=== PATIENT | female | born 1985 | race Caucasian/White ===

== ENCOUNTER 2017-02-10 18:20 | Emergency (ER) | payer OTHER ==
[~2017-02-10] VITALS: Ht 165.1 cm; Wt 117.0 kg
[~2017-02-10 18:20] MED LIST: IBUP-2213 PO; LEVO0.0236 PO
[2017-02-10 18:44] VITALS: BP 117/72
[2017-02-10] MEDS ORDERED: IRON65TA11 PO (18:46)
--- NOTE | 2017-02-10 21:42 | NUR ---
PT TAKEN TO OF2
--- NOTE | 2017-02-10 21:49 | NUR ---
Dr. Rogers evaluating patient at bedside.
[2017-02-10 22:25] VITALS: BP 121/67
--- NOTE | 2017-02-10 22:25 | NUR ---
Patient discharged with v/s stable. Written and verbal after care instructions given and explained. Patient alert, oriented and verbalized understanding of instructions. Ambulatory with steady gait. All questions addressed prior to discharge. ID band removed. Patient advised to follow up with PMD. Rx of PHENERGAN DM AND A Z-OPAL given. Patient educated on indication of medication including possible reaction and side effects. Opportunity to ask questions provided and answered.
== END 2017-02-10 22:25 | disposition home or self-care (01) ==
LOC: MED 18:20
DX: J02.9 Acute pharyngitis, unspecified (principal); E03.9 Hypothyroidism, unspecified; Z88.5 Allergy status to narcotic agent
CPT/HCPCS: 99283

== ENCOUNTER 2017-03-19 14:05 | Emergency (ER) | payer OTHER ==
[~2017-03-19] VITALS: Ht 165.1 cm; Wt 117.0 kg
[~2017-03-19 14:05] MED LIST changes: +IRON65TA11 PO
[2017-03-19 14:09] VITALS: BP 139/86
--- NOTE | 2017-03-19 14:34 | NUR ---
Patient BIBA to bed 4 at this time.
--- NOTE | 2017-03-19 14:35 | NUR ---
31/F BIBA C/O SOB x 30 MINUTES AGO. PT DENIES PAIN AT THIS TIME. HX:HYPERTHYROIDISM. DENIES N/V/D; SKIN IS PINK/WARM/DRY; AAOX4 WITH EVEN AND STEADY GAIT; LUNGS CLEAR BL; HR EVEN AND REGULAR; PT DENIES ANY FEVER, CP, SOB, OR COUGH AT THIS TIME; PATIENT STATES PAIN OF 0/10 AT THIS TIME; VSS; PATIENT POSITIONED FOR COMFORT; HOB ELEVATED; BEDRAILS UP X2; BED DOWN. ER MD MADE AWARE OF PT STATUS.
[2017-03-19] MEDS: KETOROLAC 60 MG/2 ML VIAL IM ONE (15:20)
[2017-03-19] MEDS: IBUPROFEN 600 MG TAB PO ONE (16:02)
[2017-03-19] MEDS: ALUMINUM HYD/MAG/SIMETHICONE 30 ML, DICYCLOMINE HCL LIQUID 20 MG, LIDOCAINE VISCOUS 2% ... PO ONE ×3 (16:48)
[2017-03-19 17:16] VITALS: BP 119/71
--- NOTE | 2017-03-19 17:16 | NUR ---
Patient discharged with v/s stable. Written and verbal after care instructions given and explained. Patient alert, oriented and verbalized understanding of instructions. Ambulatory with steady gait. All questions addressed prior to discharge. ID band removed. Patient advised to follow up with PMD. Rx of PROTONIX & ZOFRAN given. Patient educated on indication of medication including possible reaction and side effects. Opportunity to ask questions provided and answered.
== END 2017-03-19 17:16 | disposition home or self-care (01) ==
LOC: MED 14:05
DX: R07.89 Other chest pain (principal); R06.00 Dyspnea, unspecified; R20.0 Anesthesia of skin; F41.9 Anxiety disorder, unspecified; E03.9 Hypothyroidism, unspecified; Z88.6 Allergy status to analgesic agent; Z90.49 Acquired absence of other specified parts of digestive tract
CPT/HCPCS: 36415; 71020; 85379; 93005; 99291; J1885

== ENCOUNTER 2017-03-31 19:00 | Emergency (ER) | payer OTHER ==
[~2017-03-31] VITALS: Ht 170.2 cm; Wt 113.4 kg
[2017-03-31 19:31] VITALS: BP 125/78
--- NOTE | 2017-03-31 20:34 | NUR ---
PT TAKEN TO BED 4
--- NOTE | 2017-03-31 20:35 | NUR ---
PT CAME TO ER WITH C/O RT ARM NUMBNESS AND SOB STARTED AT 1500 HOURS.
--- NOTE | 2017-03-31 20:36 | NUR ---
Dr. Arroyo evaluating patient at bedside.
[2017-03-31 21:00] VITALS: BP 121/75
--- NOTE | 2017-03-31 21:00 | NUR ---
Patient discharged with v/s stable. Written and verbal after care instructions given and explained. Patient alert, oriented and verbalized understanding of instructions. Ambulatory with steady gait. All questions addressed prior to discharge. ID band removed. Patient advised to follow up with PMD. Rx of OMEPRAZOLE 40MG DELAYED RELEASE CAPSULE given. Patient educated on indication of medication including possible reaction and side effects. Opportunity to ask questions provided and answered.
== END 2017-03-31 21:00 | disposition home or self-care (01) ==
LOC: MED 19:00
DX: K21.9 Gastro-esophageal reflux disease without esophagitis (principal); R03.0 Elevated blood-pressure reading, without diagnosis of hypertension; E05.90 Thyrotoxicosis, unspecified without thyrotoxic crisis or storm; F41.9 Anxiety disorder, unspecified; R42 Dizziness and giddiness; R20.0 Anesthesia of skin; Z88.6 Allergy status to analgesic agent
CPT/HCPCS: 82948; 99283

== ENCOUNTER 2017-08-09 00:56 | Emergency (ER) | payer OTHER ==
[~2017-08-09] VITALS: Ht 165.1 cm; Wt 122.5 kg
[~2017-08-09 00:56] MED LIST changes: -IBUP-2213 PO; -IRON65TA11 PO; -LEVO0.0236 PO; +LEVOTHYROXIN0.025 M1 PO; +MOTRIN600 MG PO; +NATURAL IRON65 MG PO; +PCN
[2017-08-09 01:12] VITALS: BP 97/59
[2017-08-09] MEDS ORDERED: LEVOTHYROXIN0.075 M2 PO (01:18)
--- NOTE | 2017-08-09 01:20 | NUR ---
PT BIB [facility] C/O PRESSURE PAIN TO BACK OF HEAD, TIGLING TO BILATERAL ARMS, AND COUGH X 1 1/2 WK. MED HX HYPOTHYROIDISM, AND ANXIETY. PT DENIES ANY TRAUMA. PT DENIES N/V/D; SKIN IS INTACT, PINK/WARM/DRY; AAOX4, PERRL, WITH EVEN AND STEADY GAIT; LUNGS CLEAR BL, BREATHING UNLABORED; HR EVEN AND REGULAR, BL PERIPHERAL PULSES PRESENT; BS ACTIVE X4, NO TENDERNESS TO PALPATION. PT DENIES ANY FEVER, CP, SOB AT THIS TIME; PT STATES 5/10 PAIN AT THIS TIME; VSS; PATIENT POSITIONED FOR COMFORT; HOB ELEVATED; BEDRAILS UP X2; BED DOWN.
--- NOTE | 2017-08-09 01:21 | NUR ---
[facility]
[2017-08-09] MEDS ORDERED: NACL 0.9% 1,000 ML IV ONE (01:35)
[2017-08-09] MEDS ORDERED: KETOROLAC 30 MG/ML VIAL IVP ONE (03:45)
--- NOTE | 2017-08-09 03:55 | NUR ---
Patient appears to be resting comfortably in bed. Vital Signs within normal limits. Respirations even and unlabored.
[2017-08-09 04:27] VITALS: BP 107/55
--- NOTE | 2017-08-09 04:27 | NUR ---
Patient discharged with v/s stable. Written and verbal after care instructions given and explained. Patient alert, oriented and verbalized understanding of instructions. Ambulatory with steady gait. All questions addressed prior to discharge. ID band removed. Patient advised to follow up with PMD. Rx of PREVACID given. Patient educated on indication of medication including possible reaction and side effects. Opportunity to ask questions provided and answered.
== END 2017-08-09 04:28 | disposition home or self-care (01) ==
LOC: MED 00:56
DX: F41.9 Anxiety disorder, unspecified (principal); E05.90 Thyrotoxicosis, unspecified without thyrotoxic crisis or storm; Z88.5 Allergy status to narcotic agent
CPT/HCPCS: 36415; 74000; 80053; 84443; 85025; 93005; J1885; J7030

== ENCOUNTER 2017-11-08 23:06 | Emergency (ER) | payer OTHER ==
[~2017-11-08] VITALS: Ht 167.6 cm; Wt 122.5 kg
[~2017-11-08 23:06] MED LIST changes: +FERR-252 PO; +LEVO0.0711 PO; -LEVOTHYROXIN0.025 M1 PO; -MOTRIN600 MG PO; -NATURAL IRON65 MG PO; -PCN
[2017-11-08 23:08] VITALS: BP 116/67
--- NOTE | 2017-11-08 23:13 | NUR ---
TO LOBBY, JOSE MIN. EKG DONE, A/W BED, ERMD NOTED
--- NOTE | 2017-11-09 01:23 | NUR ---
DR. ESPINOSA AT BEDSIDE EVALUATING PT.
--- NOTE | 2017-11-09 01:26 | NUR ---
PATIENT PRESENTS TO ED WITH c/o chest pain . PT STATES pain sunday night . DENIES N/V/D; SKIN IS PINK/WARM/DRY; AAOX4 WITH EVEN AND STEADY GAIT; LUNGS CLEAR BL; HR EVEN AND REGULAR; PT DENIES ANY FEVER, OR COUGH AT THIS TIME; PATIENT STATES PAIN OF 7/10 AT THIS TIME; VSS; PATIENT POSITIONED FOR COMFORT; HOB ELEVATED; BEDRAILS UP X2; BED DOWN. ER MD MADE AWARE OF PT STATUS.
--- NOTE | 2017-11-09 02:00 | NUR ---
PT TAKEN TO XRAY VIA WHEEL CHAIR
[2017-11-09 02:25] VITALS: BP 133/87
--- NOTE | 2017-11-09 02:26 | NUR ---
Patient discharged with v/s stable. Written and verbal after care instructions given and explained. Patient verbalized understanding. Ambulatory with steady gait. All questions addressed prior to discharge. Advised to follow up with PMD.
== END 2017-11-09 02:26 | disposition home or self-care (01) ==
LOC: MED 23:06
DX: S19.9XXA Unspecified injury of neck, initial encounter (principal); E66.01 Morbid (severe) obesity due to excess calories; R03.0 Elevated blood-pressure reading, without diagnosis of hypertension; E03.9 Hypothyroidism, unspecified; Z79.899 Other long term (current) drug therapy; Z88.5 Allergy status to narcotic agent; X58.XXXA Exposure to other specified factors, initial encounter; Y93.89 Activity, other specified; Y92.89 Other specified places as the place of occurrence of the external cause; Y99.8 Other external cause status
CPT/HCPCS: 70360; 99284

== ENCOUNTER 2017-11-18 18:45 | Emergency (ER) | payer OTHER ==
[~2017-11-18] VITALS: Ht 167.6 cm; Wt 123.4 kg
[2017-11-18 19:00] VITALS: BP 118/64
--- NOTE | 2017-11-18 19:56 | NUR ---
PT TAKEN TO BED 10
--- NOTE | 2017-11-18 20:00 | NUR ---
PATIENT IS A 32 Y/O FEMALE WHO PRESENTS TO THE ED C/O NECK PAIN. PT STATES, "MY NECK HAS BEEN HURTING FOR ABOUT A DAY." PT REPORTS 8/10 PRESSURE PAIN ON THE RIGHT NECK THAT DOES NOT RADIATE. PT DENIES CP, SOB, REPORTS DIARRHEA. PT AAOX4, RR EVEN/UNLABORED. PT REPOSITIONED FOR COMFORT, BED IN LOWEST POSITION. ER FURNACE ATTENDANT FATOU NOTIFIED. WILL CONTINUE TO MONITOR.
[2017-11-18] MEDS ORDERED: KETOROLAC 30 MG/ML VIAL IM ONE (20:35)
[2017-11-18 21:45] VITALS: BP 121/70
[2017-11-30] MEDS ORDERED: VITAMIN D2 (17:09)
[2017-11-30] MEDS ORDERED: PREDNISONE 5 MG (17:09)
[2017-11-30] MEDS ORDERED: LEVOTHYROXINE (17:09)
[2017-11-30] MEDS ORDERED: HYDROCODONE-ACETAMIN 10-325 MG (17:09)
[2017-11-30] MEDS ORDERED: METHOTREXATE 2.5 MG TABLET (17:09)
[2017-11-30] MEDS ORDERED: FOLIC ACID 1 MG TABLET (17:09)
== END 2017-11-18 21:45 | disposition home or self-care (01) ==
LOC: MED 18:45
DX: S16.1XXA Strain of muscle, fascia and tendon at neck level, initial encounter (principal); K92.2 Gastrointestinal hemorrhage, unspecified; K81.9 Cholecystitis, unspecified; X58.XXXA Exposure to other specified factors, initial encounter; Y93.89 Activity, other specified; Y92.89 Other specified places as the place of occurrence of the external cause; Y99.8 Other external cause status
CPT/HCPCS: 81025; 96372; 99283; J1885

== ENCOUNTER 2017-12-12 12:33 | Emergency (ER) | payer OTHER ==
[~2017-12-12] VITALS: Ht 167.6 cm; Wt 118.4 kg
[~2017-12-12 12:33] MED LIST changes: +FOLIC ACID 1 MG TABLET; +HYDROCODONE-ACETAMIN 10-325 MG; +LEVOTHYROXINE; +METHOTREXATE 2.5 MG TABLET; +PREDNISONE 5 MG; +VITAMIN D2
[2017-12-12 13:06] VITALS: BP 115/76
--- NOTE | 2017-12-12 13:10 | NUR ---
PT TAKEN TO BED 10
--- NOTE | 2017-12-12 13:19 | NUR ---
C/O DIARRHEA X 3+WKS, ANXIETY, SHAKING, NIGHT SWEATS, CHEST PRESSURE, INTERMITTENT EPIGASTRIC PAIN 03/14 HX; HTN RX; METOPROLOL, ATIVAN
--- NOTE | 2017-12-12 13:21 | NUR ---
PT CRYING WHEN SIMPLE QUESTIONS ASKED, PT VERY ANXIOUS, REPORTS STRESS AT HOME WITH CHILDREN. DENIES SI/HI,VH,AH. PT REQUESTING FOR FOOD AND WATER. INFORMED NONE AT THIS TIME.
--- NOTE | 2017-12-12 13:31 | NUR ---
Patient being evaluated by physician at bedside.
[2017-12-12] MEDS ORDERED: DIPHENOXYLATE /ATROPINE 2.5 MG TAB PO ONE (13:35)
[2017-12-12] MEDS ORDERED: LORazepam 1 MG TAB PO ONE (13:35)
--- NOTE | 2017-12-12 13:56 | NUR ---
NO DIARRHEA WHILE HERE IN THE ER. PT TALKING WITH FRIEND AT BEDSIDE, IN NAD.
[2017-12-12 14:17] VITALS: BP 122/83
--- NOTE | 2017-12-12 14:17 | NUR ---
Patient discharged with v/s stable. Written and verbal after care instructions given and explained. Patient alert, oriented and verbalized understanding of instructions. Ambulatory with steady gait. All questions addressed prior to discharge. ID band removed. Patient advised to follow up with PMD. Rx of LOMOTIL,ATIVAN given. Patient educated on indication of medication including possible reaction and side effects. Opportunity to ask questions provided and answered.
== END 2017-12-12 14:17 | disposition home or self-care (01) ==
LOC: MED 12:33
DX: R19.7 Diarrhea, unspecified (principal); F41.9 Anxiety disorder, unspecified; E07.9 Disorder of thyroid, unspecified; Z79.899 Other long term (current) drug therapy; Z88.5 Allergy status to narcotic agent
CPT/HCPCS: 81002; 81025; 99283

== ENCOUNTER 2018-02-27 15:43 | Emergency (ER) | payer OTHER ==
[~2018-02-27] VITALS: Ht 165.1 cm; Wt 122.5 kg
[2018-02-27 15:45] VITALS: BP 140/88
--- NOTE | 2018-02-27 16:01 | NUR ---
32Y/F BIB SELF FOR COMPLAINS OF EPIGASTRIC PAIN WITH RIGHT SIDED HEADACHE AND RIGHT ARM PAIN. PATIENT HAS HX OF HYPOTHYROIDISM AND RHEUMATIC ARTHRITIS. PATIENT PRESENTS TO ED WITH .DENIES N/V/D; AAOX4 WITH EVEN AND STEADY GAIT; LUNGS CLEAR BL; HR EVEN AND REGULAR; PT DENIES ANY FEVER, SOB, OR COUGH AT THIS TIME; PATIENT STATES PAIN OF 9/10 AT THIS TIME; PATIENT POSITIONED FOR COMFORT; HOB ELEVATED; BEDRAILS UP X1; BED DOWN. ER MADE AWARE OF PT STATUS. Addendum: 02/27/18 at 1610 by [facility] 32Y/F BIB SELF FOR COMPLAINS OF EPIGASTRIC PAIN WITH RIGHT SIDED HEADACHE AND RIGHT ARM PAIN. PATIENT HAS HX OF HYPOTHYROIDISM AND RHEUMATIC ARTHRITIS.DENIES N/V/D; AAOX4 WITH EVEN AND STEADY GAIT; LUNGS CLEAR BL; HR EVEN AND REGULAR; PT DENIES ANY FEVER, SOB, OR COUGH AT THIS TIME; PATIENT STATES PAIN OF 9/10 AT THIS TIME; PATIENT POSITIONED FOR COMFORT; HOB ELEVATED; BEDRAILS UP X1; BED DOWN. ER MADE AWARE OF PT STATUS.
--- NOTE | 2018-02-27 16:34 | NUR ---
Patient being evaluated by DR PEREZ at bedside.
[2018-02-27 17:10] LABS: BASOPHILS % (AUTO) 0.2 % (0.0-2.0); EOSINOPHILS % (AUTO) 0.3 % (0.0-4.0); HEMATOCRIT 40.9 % (36-48); HEMOGLOBIN 13.3 g/dL (12.0-16.0); LYMPHOCYTES # (AUTO) 1.7 K/uL (2.5-16.5); LYMPHOCYTES % (AUTO) 13.6 % (20.5-51.1); MEAN CORPUSCULAR HEMOGLOBIN 27 pg (27-31); MEAN CORPUSCULAR HGB CONC 33 g/dL (33-37); MEAN CORPUSCULAR VOLUME 83.8 fL (80-94); MONOCYTES # (AUTO) 0.6 K/uL (0.8-1.0); MONOCYTES % (AUTO) 4.9 % (1.7-9.3); NEUTROPHILS # (AUTO) 10.4 K/uL (1.8-7.7); PLATELET COUNT (AUTO) 301 K/uL (140-450); RED BLOOD CELL COUNT(AUTO) 4.88 MIL/uL (4.20-5.40); RED CELL DISTRIBUTION WIDTH 13.7 % (11.6-13.7); WHITE BLOOD COUNT (AUTO) 12.8 K/uL (4.8-10.8)
[2018-02-27 17:18] LABS: ANION GAP 8.2 (8-16); CARBON DIOXIDE 29.5 mmol/L (21-32); CREATININE 0.6 mg/dL (0.6-1.3); POTASSIUM 3.7 mmol/L (3.5-5.1)
[2018-02-27 17:24] LABS: ALBUMIN 3.5 g/dL (3.4-5.0); TOTAL BILIRUBIN 0.4 mg/dL (0.0-1.0)
[2018-02-27 18:17] VITALS: BP 126/76
--- NOTE | 2018-02-27 18:17 | NUR ---
Patient discharged with v/s stable. Written and verbal after care instructions given and explained. Patient alert, oriented and verbalized understanding of instructions. Ambulatory with steady gait. All questions addressed prior to discharge. ID band removed. Patient advised to follow up with PMD. Rx of MYLANTA AND DEBROX given. Patient educated on indication of medication including possible reaction and side effects. Opportunity to ask questions provided and answered.
== END 2018-02-27 18:17 | disposition home or self-care (01) ==
LOC: MED 15:43
DX: R10.13 Epigastric pain (principal); E03.9 Hypothyroidism, unspecified; Z88.6 Allergy status to analgesic agent
CPT/HCPCS: 36415; 80053; 81002; 81025; 83690; 84484; 85025; 93005; 99285

== ENCOUNTER 2018-03-05 21:21 | Emergency (ER) | payer OTHER ==
[~2018-03-05] VITALS: Ht 167.6 cm; Wt 120.7 kg
[2018-03-05 21:29] VITALS: BP 109/72
--- NOTE | 2018-03-05 21:37 | NUR ---
PT TAKEN TO CHAIR D
[2018-03-05 21:40] VITALS: BP 109/72
[2018-03-05] MEDS ORDERED: SYN.1 PO (21:40)
--- NOTE | 2018-03-05 21:40 | NUR ---
PATIENT IS A 32 Y/O FEMALE WHO PRESENTS TO THE ED C/O HEADACHE. PT STATES THAT IT HAS BEEN GOING ON FOR 2 DAYS. PT REPORTS 8/10 ACHING BILATERAL XIAO PAIN THAT DOES NOT RADIATE. PT DENIES CP, SOB, N/V/D. PT AAOX4, RR EVEN/UNLABORED. PT REPOSITIONED FOR COMFORT, BED IN LOWEST POSITION. ER MD DR. STEVENS NOTIFIED. WILL CONTINUE TO MONITOR.
--- NOTE | 2018-03-05 22:13 | NUR ---
Dr. Dave evaluating patient.
--- NOTE | 2018-03-05 22:54 | NUR ---
PT TAKEN TO CT
--- NOTE | 2018-03-05 23:03 | NUR ---
PATIENT RETURN FROM CT.
--- NOTE | 2018-03-05 23:59 | NUR ---
Patient discharged with v/s stable. Written and verbal after care instructions given and explained. Patient alert, oriented and verbalized understanding of instructions. Ambulatory with steady gait. All questions addressed prior to discharge. ID band removed. Patient advised to follow up with PMD. Rx of MEDROL AND FIORINAL given. Patient educated on indication of medication including possible reaction and side effects. Opportunity to ask questions provided and answered.
== END 2018-03-05 23:59 | disposition home or self-care (01) ==
LOC: MED 21:21
DX: G44.209 Tension-type headache, unspecified, not intractable (principal); M06.9 Rheumatoid arthritis, unspecified; F41.9 Anxiety disorder, unspecified; Z88.5 Allergy status to narcotic agent; Z79.899 Other long term (current) drug therapy
CPT/HCPCS: 70486; 81025; 99284

== ENCOUNTER 2018-06-09 22:24 | Emergency (ER) | payer OTHER ==
[~2018-06-09] VITALS: Ht 167.6 cm; Wt 125.2 kg
[2018-06-09 22:24] VITALS: BP 115/69
[~2018-06-09 22:24] MED LIST changes: -FERR-252 PO; -FOLIC ACID 1 MG TABLET; -HYDROCODONE-ACETAMIN 10-325 MG; -LEVO0.0711 PO; -LEVOTHYROXINE; -METHOTREXATE 2.5 MG TABLET; -PREDNISONE 5 MG; +SYN.1 PO; -VITAMIN D2
[2018-06-09] MEDS ORDERED: LEVO0.173 PO (22:31)
--- NOTE | 2018-06-09 22:49 | NUR ---
Patient ambulated to bed 9. RN evaluating patient at bedside.
--- NOTE | 2018-06-09 23:00 | NUR ---
PT BIB SELF C/O CHEST PAIN X3 DAYS AND SOB . PT STATES PAIN IS LIKE A "SHOCK" ACROSS CHEST. NO PROVOKING OR PRECIPITATING FACTORS TO CP. PT IS LAYING IN BED, APPEARS TO BE IN NO ACUTE DISTRESS. RR EVEN AND UNLABORED, BL BS CLEAR THROUGHOUT. PMH HYPOTHYROID
--- NOTE | 2018-06-09 23:15 | NUR ---
DR GIL AT BEDSIDE EVALUATING PT.
[2018-06-09] MEDS ORDERED: KETOROLAC 30 MG/ML VIAL IM ONE (23:55)
[2018-06-09] MEDS ORDERED: LORazepam 1 MG TAB PO ONE (23:55)
--- NOTE | 2018-06-10 00:01 | NUR ---
PENDING DISCHARGE PAPERWORK
--- NOTE | 2018-06-10 00:08 | NUR ---
PT STATES I ALREADY TOOK ATIVAN, I DON'T WANT ANY PAIN MEDICINE. ALL BENEFIT EXPLAINS, VERBALIZED UNDERSTANDING. MADE AWARE. WILL CONTINUE TO MONITOR.
[2018-06-10 00:18] VITALS: BP 113/64
== END 2018-06-10 00:17 | disposition home or self-care (01) ==
LOC: MED 22:24
DX: F41.9 Anxiety disorder, unspecified (principal); R07.89 Other chest pain; E03.9 Hypothyroidism, unspecified; Z88.8 Allergy status to other drugs, medicaments and biological substances; Z79.899 Other long term (current) drug therapy
CPT/HCPCS: 81002; 81025; 93005; 99284; J1885

== ENCOUNTER 2018-09-29 19:45 | Inpatient (IN) | payer OTHER ==
[~2018-09-29] VITALS: Ht 167.6 cm; Wt 117.9 kg
[2018-09-29 19:45] VITALS: BP 119/73
[~2018-09-29 19:45] MED LIST changes: +LEVO0.173 PO; -SYN.1 PO
--- NOTE | 2018-09-29 19:48 | NUR ---
TO LOBBY A/W BED, JOSE MILLER NOTED.
--- NOTE | 2018-09-29 20:53 | NUR ---
PT PRESENTS TO ED WITH BILAT ABD PAIN X1 DAY. PT STATSE SHARP STABBING DEEP SEVERE ACHE IN BILAT FLANKS. VSS. A&OX4. ABD SOFT AND NONTANEDER. BOWEL SOUNDS PRESENT X4 QUADRANTS. ER MD AWARE. POSITIONED IN BED FOR COMFORT. SIDE RAIL UP. CONTINUE TO MONITOR.
--- NOTE | 2018-09-29 20:53 | NUR ---
TO ER BED 3 FROM ER LOBBY
[2018-09-29] MEDS ORDERED: NACL 0.9% 1,000 ML IV ONE (21:00)
[2018-09-29] MEDS ORDERED: LEVOFLOXACIN 500 MG/D5W PREMIX 100 ML IV ONE (21:00)
[2018-09-29] MEDS ORDERED: KETOROLAC 30 MG/ML VIAL IVP ONE (21:00)
[2018-09-29 21:55] LABS: BASOPHILS % (AUTO) 0.1 % (0.0-2.0); EOSINOPHILS % (AUTO) 0.1 % (0.0-4.0); HEMATOCRIT 40.8 % (36-48); HEMOGLOBIN 13.1 g/dL (12.0-16.0); LYMPHOCYTES # (AUTO) 1.3 K/uL (2.5-16.5); LYMPHOCYTES % (AUTO) 6.7 % (20.5-51.1); MEAN CORPUSCULAR HEMOGLOBIN 26 pg (27-31); MEAN CORPUSCULAR HGB CONC 32 g/dL (33-37); MONOCYTES # (AUTO) 0.6 K/uL (0.8-1.0); MONOCYTES % (AUTO) 3.2 % (1.7-9.3); NEUTROPHILS # (AUTO) 16.7 K/uL (1.8-7.7); NEUTROPHILS % (AUTO) 89.9 % (42.2-75.2); PLATELET COUNT (AUTO) 326 K/uL (140-450); RED BLOOD CELL COUNT(AUTO) 5.03 MIL/uL (4.20-5.40); WHITE BLOOD COUNT (AUTO) 18.6 K/uL (4.8-10.8)
[2018-09-29 22:15] LABS: ALBUMIN 3.6 g/dL (3.4-5.0); ANION GAP 11.5 (8-16); CARBON DIOXIDE 28.3 mmol/L (21-32); CREATININE 0.7 mg/dL (0.6-1.3); POTASSIUM 3.8 mmol/L (3.5-5.1); TOTAL BILIRUBIN 0.3 mg/dL (0.0-1.0)
[2018-09-29] MEDS ORDERED: fentaNYL 0.05 MG/ML VIAL IVP ONE (22:50)
[2018-09-29 23:16] LABS: APPEARANCE,URINE CLOUDY (CLEAR); BLOOD, URINE LARGE (NEGATIVE); COLOR,URINE YELLOW (YELLOW); LEUKOCYTE ESTERASE ,URINE TRACE (NEGATIVE); NITRITE, URINE NEGATIVE (NEGATIVE); UGLUCOSE NEGATIVE (NEGATIVE)
[2018-09-29 23:49] LABS: BILIRUBIN,URINE NEGATIVE (NEGATIVE); RBC,URINE TOO NUMEROUS TO COUN /HPF (0-5)
--- NOTE | 2018-09-30 00:10 | NUR ---
PT ARRIVED ON UNIT VIA GURNEY WITH ER NURSE. PT ABLE TO AMBULATE FROM RSEFFNER INTO BED. PT IN STABLE CONDITION. PT IS AAOX4. PT IS ON RA WITH RESPIRATIONS EVEN AND UNLABORED. IV ACCESS IN L AC 20G, SALINE LOCKED. IV IS PATENT AND INTACT. SKIN IS INTACT. PT HAS NO C/O PAIN AT THIS TIME. MRSA SWAB COLLECTED. ORIENTED PT TO ROOM AND USE OF CALL LIGHT. BED IS LOCKED, LOW POSITION WITH SIDE RAILS UP X2. CALL LIGHT IS WITHIN REACH. BOARD UPDATED. WILL CONTINUE TO MONITOR PT.
[2018-09-30 00:20] VITALS: BP 124/71
[2018-09-30] MEDS ORDERED: ALPRAZolam 0.5 MG TAB PO PRN (00:35)
[2018-09-30] MEDS ORDERED: IBUPROFEN 800 MG TAB PO PRN (00:35)
--- NOTE | 2018-09-30 00:40 | NUR ---
COLLECTED PT HOME MEDS. SEALED IN BAG, LABELED AND SENT TO PHARMACY.
[2018-09-30] MEDS ORDERED: ONDANSETRON 4 MG/2 ML VIAL IVP PRN (00:45)
[2018-09-30] MEDS: NACL 0.45% 1,000 ML IV SCH ×2 (00:59→09:43)
--- NOTE | 2018-09-30 00:59 | NUR ---
ORDERED IVF STARTED.
--- NOTE | 2018-09-30 03:52 | NUR ---
PT IS ASLEEP IN BED. NO SIGNS OR SYMPTOMS OF DISTRESS. WILL CONTINUE TO MONITOR.
[2018-09-30] MEDS ORDERED: metroNIDAZOLE 500 MG/NS PREMIX 100 ML IV SCH (05:00)
[2018-09-30] MEDS ORDERED: LEVOTHYROXINE 0.1 MG, LEVOTHYROXINE 0.025 MG PO SCH ×2 (06:30)
--- NOTE | 2018-09-30 07:27 | NUR ---
PT C/O PAIN MOTRIN GIVEN. ENDORSED PT TO DAY SHIFT NURSE, CAROLE, FOR CONTINUITY OF CARE. PT IN STABLE CONDITION.
[2018-09-30 08:00] VITALS: BP 114/68
--- NOTE | 2018-09-30 08:00 | NUR ---
Patient is awake and alert, oriented x 4. She has some abd pain, does not require pain medication. Clear liquid diet this morning. Mario Mulligan RN
[2018-09-30] MEDS ORDERED: LEVOTHYROXINE 0.025 MG TAB PO SCH (09:00)
[2018-09-30] MEDS ORDERED: CHOLECALCIFEROL 1,000 IU TAB PO SCH (09:00)
[2018-09-30] MEDS ORDERED: sulfaSALAzine 500 MG TAB PO SCH (09:00)
[2018-09-30] MEDS ORDERED: FAMOTIDINE 20 MG/2 ML VIAL IV SCH (09:00)
--- NOTE | 2018-09-30 09:19 | NUR ---
PATIENT HAS BEEN SCREENED AND CATEGORIZED HIGH NUTRITION RISK. PATIENT WILL BE SEEN WITHIN 1-2 DAYS OF ADMISSION. 09/29/18-10/01/[address]
[2018-09-30] MEDS ORDERED: LEVO500T2 PO (10:42)
--- NOTE | 2018-09-30 11:04 | NUR ---
CM NOTE PER PATIENT'S FACESHEET, PCP IS DR. REESE BATISTA. PER JANE OF [facility] PH# [phone], PATIENT HAS ALREADY SET UP HER OWN OUTPATIENT APPOINTMENT FOR OCTOBER 06 2018 11:00 [place] [address] [address] [facility] [id number] PATIENT REQUESTED TO MAKE AN OUTPATIENT APPOINTMENT WITH ONE OF HER OTHER DOCTORS, DR. UMU BURKETT PH# [phone] [facility] PH# [phone], PATIENT IS SET UP FOR OUTPATIENT FF UP APPOINTMENT ON OCTOBER 04 2018 9:45 AM AT [place] [address] [facility] [id number] TERESA YOUNG AWARE
--- NOTE | 2018-09-30 13:10 | NUR ---
Patient discharged to home, received discharge instructions regarding follow up care, diet, activity, meds at home to be resumed, and rx information given. Patient gives verbal acknowledgement of understanding information received. Mario Mulligan RN
[2018-09-30] MEDS ORDERED: LEVOFLOXACIN 250 MG/D5 PREMIX 50 ML IV SCH (21:00)
== END 2018-09-30 12:30 | disposition home or self-care (01) | DRG 690 ==
LOC: MED 19:45 → MTU 23:22
PROVIDERS: ADMIT Internal Medicine; ATTEND Internal Medicine
DX: N39.0 Urinary tract infection, site not specified (principal); E03.9 Hypothyroidism, unspecified; F41.9 Anxiety disorder, unspecified; M06.9 Rheumatoid arthritis, unspecified; Z88.5 Allergy status to narcotic agent; Z79.899 Other long term (current) drug therapy; Z90.49 Acquired absence of other specified parts of digestive tract
CPT/HCPCS: 36415; 80053; 81001; 85025; 87040; 87081; 87086; 96365; 96375; 99285; J1885; J1956; J3010; J3490

== ENCOUNTER 2019-03-28 22:15 | Emergency (ER) | payer OTHER, MEDICAID ==
[~2019-03-28] VITALS: Ht 167.6 cm; Wt 127.0 kg
[~2019-03-28 22:15] MED LIST changes: +LEVO500T2 PO
[2019-03-28 22:24] VITALS: BP 134/77
--- NOTE | 2019-03-28 22:37 | NUR ---
PT OKAY TO WAIT IN LOBBY PER ER .
--- NOTE | 2019-03-28 22:37 | NUR ---
EKG WAS DONE ON PT, PT AMBULATED BACK TO JOSE HERMAN
--- NOTE | 2019-03-28 23:54 | NUR ---
PT AMBULATED TO ER BED 7
[2019-03-29 00:02] VITALS: BP 134/77
--- NOTE | 2019-03-29 00:06 | NUR ---
PT TO ED WITH C/O CP X 3 DAYS. NO SOB. PT DENIES ANY CARDIAC HX. NO EDEMA NOTED. S1 S2 HEART SOUNDS PRESENTS AND WNL. RHYTHM IS REGULAR. PT PLACED INTO BED, PENDING MD LAUREN.
== END 2019-03-29 00:15 | disposition left against medical advice (07) ==
LOC: MED 22:15
DX: R07.9 Chest pain, unspecified (principal); Z53.21 Procedure and treatment not carried out due to patient leaving prior to being seen by health care provider
CPT/HCPCS: 93005; 99281; 99283

== ENCOUNTER 2019-05-14 15:05 | Emergency (ER) | payer OTHER, MEDICAID ==
[~2019-05-14] VITALS: Ht 170.2 cm; Wt 126.1 kg
[2019-05-14 15:11] VITALS: BP 140/90
--- NOTE | 2019-05-14 15:16 | NUR ---
PT AMB TO LOBBY. AA0X4. VSS AT THIS TIME.
--- NOTE | 2019-05-14 15:31 | NUR ---
PT AMBULATED TO BE 03.
--- NOTE | 2019-05-14 16:08 | NUR ---
PT BIB SELF WITH C/O HEADACHE X 3 DAYS. DECRIBED PRESSURE AND PAIN 5/10. TINGLING ON R SIDE OF HEAD. TOOK IBUPROFEN FOR HEADACHE AT 1230, SOME RELIEF. ARTHRITIS, HYPOTHYROIDISM RX LEVOTHYROXINE 150 MG
[2019-05-14] MEDS ORDERED: ACETAMINOPHEN 325 MG TAB PO ONE ×2 (16:15→16:35)
--- NOTE | 2019-05-14 16:30 | NUR ---
PATIENT TAKEN FOR CT SCAN CT VIA [facility] AT THIS TIME.
--- NOTE | 2019-05-14 16:35 | NUR ---
PT LEFT FOR CT .
[2019-05-14] MEDS ORDERED: ACETAMINOPHEN 325 MG TAB ONE (16:36)
[2019-05-14 16:37] LABS: APPEARANCE,URINE CLEAR (CLEAR); BILIRUBIN,URINE NEGATIVE (NEGATIVE); BLOOD, URINE NEGATIVE (NEGATIVE); COLOR,URINE YELLOW (YELLOW); LEUKOCYTE ESTERASE ,URINE NEGATIVE (NEGATIVE); NITRITE, URINE NEGATIVE (NEGATIVE); UGLUCOSE NEGATIVE (NEGATIVE)
[2019-05-14 16:38] LABS: BASOPHILS % (AUTO) 0.4 % (0.0-2.0); EOSINOPHILS # (AUTO) 0.1 K/uL (0-0.4); EOSINOPHILS % (AUTO) 1.2 % (0.0-4.0); HEMATOCRIT 39.4 % (36-48); HEMOGLOBIN 12.6 g/dL (12.0-16.0); LYMPHOCYTES # (AUTO) 2.4 K/uL (2.5-16.5); LYMPHOCYTES % (AUTO) 19.6 % (20.5-51.1); MEAN CORPUSCULAR HEMOGLOBIN 26 pg (27-31); MEAN CORPUSCULAR HGB CONC 32 g/dL (33-37); MEAN CORPUSCULAR VOLUME 81.3 fL (80-94); MONOCYTES # (AUTO) 0.6 K/uL (0.8-1.0); MONOCYTES % (AUTO) 5.2 % (1.7-9.3); NEUTROPHILS # (AUTO) 9.1 K/uL (1.8-7.7); NEUTROPHILS % (AUTO) 73.6 % (42.2-75.2); PLATELET COUNT (AUTO) 300 K/uL (140-450); RED BLOOD CELL COUNT(AUTO) 4.85 MIL/uL (4.20-5.40); RED CELL DISTRIBUTION WIDTH 14.3 % (11.6-13.7); WHITE BLOOD COUNT (AUTO) 12.4 K/uL (4.8-10.8)
[2019-05-14 16:43] LABS: BARBITURATE, URINE NEG. ng/ml (NEG <=200); BENZODIAZEPINE, URINE NEG. ng/mL (NEG <=200); CANNABINOID, URINE NEG. ng/mL (NEG <=50); COCAINE, URINE NEG. ng/mL (NEG <=300); OPIATE, URINE NEG. ng/mL (NEG <=2000); PHENCYCLIDINE SCREEN,URINE NEG. ng/mL (NEG <=25)
[2019-05-14 17:13] LABS: ALBUMIN 3.4 g/dL (3.4-5.0); TOTAL BILIRUBIN 0.4 mg/dL (0.0-1.0)
[2019-05-14 17:14] LABS: ANION GAP 10.8 (8-16); CARBON DIOXIDE 29.2 mmol/L (21-32); CREATININE 0.6 mg/dL (0.6-1.3)
[2019-05-14 17:55] VITALS: BP 114/67
--- NOTE | 2019-05-14 17:55 | NUR ---
Patient discharged with v/s stable. Written and verbal after care instructions given and explained. Patient alert, oriented and verbalized understanding of instructions. Ambulatory with steady gait. All questions addressed prior to discharge. ID band removed. Patient advised to follow up with PMD. Rx of IBUPROFEN, MECLIZINE HCL given. Patient educated on indication of medication including possible reaction and side effects. Opportunity to ask questions provided and answered.
== END 2019-05-14 17:55 | disposition home or self-care (01) ==
LOC: MED 15:05
DX: R51 Headache (principal); R42 Dizziness and giddiness; E03.9 Hypothyroidism, unspecified; Z88.5 Allergy status to narcotic agent; Z79.899 Other long term (current) drug therapy
CPT/HCPCS: 36415; 70450; 71045; 80053; 80305; 81003; 81025; 85025; 93005; 99284; Q0092

== ENCOUNTER 2019-06-20 19:54 | Emergency (ER) | payer OTHER ==
[~2019-06-20] VITALS: Ht 167.6 cm; Wt 126.1 kg
[2019-06-20 20:00] VITALS: BP 131/77
[2019-06-20] MEDS ORDERED: IBUPROFEN 800 MG TAB PO ONE (21:15)
[2019-06-20 21:29] VITALS: BP 118/73
== END 2019-06-20 21:28 | disposition home or self-care (01) ==
LOC: MED 19:54
DX: S83.92XA Sprain of unspecified site of left knee, initial encounter (principal); E07.9 Disorder of thyroid, unspecified; Z88.5 Allergy status to narcotic agent; Z79.899 Other long term (current) drug therapy; Z79.2 Long term (current) use of antibiotics; W01.0XXA Fall on same level from slipping, tripping and stumbling without subsequent striking against object, initial encounter; Y93.89 Activity, other specified; Y92.89 Other specified places as the place of occurrence of the external cause; Y99.8 Other external cause status
CPT/HCPCS: 73562; 99283; Q0092

== ENCOUNTER 2019-08-17 21:46 | Emergency (ER) | payer OTHER, MEDICAID ==
[~2019-08-17] VITALS: Ht 170.2 cm; Wt 126.1 kg
[2019-08-17 21:50] VITALS: BP 134/75
--- NOTE | 2019-08-17 22:10 | NUR ---
PT AMBULATED TO ER BED 11
--- NOTE | 2019-08-17 22:29 | NUR ---
C/O THROAT PAIN/DISCOMFORT RADIATING DOWN TO CHEST AREA. PT STATES IS HAS BEEN AN ONGOING PROBLEM AND THAT SHE WAS SUPPOSED TO HAVE A SCOPE PLACED DOWN HER THROAT BUT NEVER FOLLOWED UP. ALSO REPORTS THAT SHE FEELS THAT SOMETHING IS STUCK IN HER THROAT. PAIN 08/14. PT AA0X4. VSS. BED IS DOWN, LOCKED, BED RAIL X 1, ERMD TO SEE PT. HX HYPOTHYROID, RA RX LEVOTHYROXINE, ARTHRITIS
--- NOTE | 2019-08-17 22:42 | NUR ---
VSS AT THIS TIME. PT AA0X4
[2019-08-17] MEDS ORDERED: ALUMINUM HYD/MAG/SIMETHICONE 30 ML, DICYCLOMINE HCL LIQUID 20 MG, LIDOCAINE VISCOUS 2% ... PO ONE ×3 (23:35)
--- NOTE | 2019-08-18 01:03 | NUR ---
VSS AT THIS TIME. PT AA0X4
[2019-08-18 02:05] VITALS: BP 105/61
== END 2019-08-18 02:05 | disposition home or self-care (01) ==
LOC: MED 21:46
DX: K22.4 Dyskinesia of esophagus (principal); R07.9 Chest pain, unspecified; R10.9 Unspecified abdominal pain; F41.9 Anxiety disorder, unspecified; E07.9 Disorder of thyroid, unspecified; Z79.899 Other long term (current) drug therapy; Z88.5 Allergy status to narcotic agent
CPT/HCPCS: 70360; 71045; 93005; 99283

== ENCOUNTER 2019-08-21 18:58 | Emergency (ER) | payer OTHER ==
[~2019-08-21] VITALS: Ht 167.6 cm; Wt 122.6 kg
[2019-08-21 19:05] VITALS: BP 131/81
--- NOTE | 2019-08-21 19:10 | NUR ---
34/F PRESENTED TO ED WITH C/O REPORTS DIFFICULTY SWALLOWING X SUNDAY. PT DENIES THROAT PAIN, BUT REPORTS THAT SHE FEELS FOOD GETTING STUCK IN THROAT WHEN SHE SWALLOWS. AIRWAY IS PATENT, VOICE CLEAR, NO EXCESS SALIVA, RR EVEN AND NON LABORED, LUNG SOUNDS CLEAR. PT ALSO REPORTS EPIGASTRIC PRESSURE PAIN AT 8/10X TODAY. PT SEEN HERE SUNDAY FOR SAME SYMPTOMS. PT STATES SHE DIDN'T TAKE HER MYLANTA TODAY. STATES SHE HAS BEEN TRYING THE KETO DIET BUT STOPPED WHEN SHE STARTED FEELING SICK. STATES THIS HAS BEEN AN ONGOING PROBLEM FOR A "WHILE" NOW. NORMOACTIVE BOWEL SOUNDS HEARD IN ALL 4 QUADRANTS. STATES SHE FEELS BLOATED INTERMITENTLY. DENIES N/V/D. VSS. MEDHX:HYPOTHYROIDISM, RA RX:LEVOTHYROXINE
--- NOTE | 2019-08-21 19:48 | NUR ---
PT EVALUATED BY ANGELA
[2019-08-21] MEDS ORDERED: DICYCLOMINE HCL LIQUID 20 MG, ALUMINUM HYD/MAG/SIMETHICONE 30 ML, LIDOCAINE VISCOUS 2% ... PO ONE ×3 (19:50)
[2019-08-21] MEDS ORDERED: ONDANSETRON 4 MG ODT PO ONE (19:50)
[2019-08-21 20:12] LABS: BASOPHILS # (AUTO) 0.1 K/uL (0.00-0.22); BASOPHILS % (AUTO) 0.4 % (0.0-2.0); EOSINOPHILS # (AUTO) 0.2 K/uL (0-0.4); EOSINOPHILS % (AUTO) 1.1 % (0.0-4.0); HEMATOCRIT 41.2 % (36-48); HEMOGLOBIN 13.1 g/dL (12.0-16.0); LYMPHOCYTES # (AUTO) 2.4 K/uL (2.5-16.5); LYMPHOCYTES % (AUTO) 17.5 % (20.5-51.1); MEAN CORPUSCULAR HEMOGLOBIN 26 pg (27-31); MEAN CORPUSCULAR HGB CONC 32 g/dL (33-37); MEAN CORPUSCULAR VOLUME 81.6 fL (80-94); MONOCYTES # (AUTO) 0.7 K/uL (0.8-1.0); MONOCYTES % (AUTO) 5.3 % (1.7-9.3); NEUTROPHILS # (AUTO) 10.3 K/uL (1.8-7.7); NEUTROPHILS % (AUTO) 75.7 % (42.2-75.2); PLATELET COUNT (AUTO) 340 K/uL (140-450); RED BLOOD CELL COUNT(AUTO) 5.05 MIL/uL (4.20-5.40); RED CELL DISTRIBUTION WIDTH 15.5 % (11.6-13.7); WHITE BLOOD COUNT (AUTO) 13.7 K/uL (4.8-10.8)
[2019-08-21 20:30] LABS: APPEARANCE,URINE CLEAR (CLEAR); BILIRUBIN,URINE NEGATIVE (NEGATIVE); BLOOD, URINE 1+ (NEGATIVE); COLOR,URINE AMBER (YELLOW); LEUKOCYTE ESTERASE ,URINE NEGATIVE (NEGATIVE); NITRITE, URINE NEGATIVE (NEGATIVE); UGLUCOSE NEGATIVE (NEGATIVE)
[2019-08-21 20:49] LABS: ALBUMIN 3.8 g/dL (3.4-5.0); ANION GAP 12.6 (8-16); CARBON DIOXIDE 28.3 mmol/L (21-32); CREATININE 0.6 mg/dL (0.6-1.3); POTASSIUM 3.9 mmol/L (3.5-5.1); TOTAL BILIRUBIN 0.2 mg/dL (0.0-1.0)
[2019-08-21 21:13] LABS: RBC,URINE 0-5 /HPF (0-5); WBC,URINE NONE SEEN /HPF (0-5)
[2019-08-21 21:59] VITALS: BP 96/69
--- NOTE | 2019-08-21 21:59 | NUR ---
Patient discharged with v/s stable. Written and verbal after care instructions given and explained. Patient alert, oriented and verbalized understanding of instructions. Ambulatory with steady gait. All questions addressed prior to discharge. ID band removed. Patient advised to follow up with PMD. Rx of SUCRALFATE, PROTONIX, ZOFRAN given. Patient educated on indication of medication including possible reaction and side effects. Opportunity to ask questions provided and answered.
== END 2019-08-21 21:59 | disposition home or self-care (01) ==
LOC: MED 18:58
DX: R13.10 Dysphagia, unspecified (principal); R10.9 Unspecified abdominal pain; R06.02 Shortness of breath; E03.9 Hypothyroidism, unspecified; Z88.5 Allergy status to narcotic agent; Z79.899 Other long term (current) drug therapy
CPT/HCPCS: 36415; 80053; 81001; 81025; 83690; 84703; 85025; 99283; Q0162

== ENCOUNTER 2019-10-14 21:23 | Emergency (ER) | payer OTHER ==
[~2019-10-14] VITALS: Ht 167.6 cm; Wt 122.5 kg
[2019-10-14 21:25] VITALS: BP 139/80
--- NOTE | 2019-10-14 21:28 | NUR ---
TO LOBBY A/W BED AMBULATORY
--- NOTE | 2019-10-14 21:49 | NUR ---
PT AMBULATED TO BED 08
--- NOTE | 2019-10-14 22:00 | NUR ---
34 Y/O FEMALE PRESENTS TO ED, C/O CHEST PAIN 06/14. PT STATES PAIN STARTED LAST NIGHT, DOES NOT RADIATE. PT DENIES ANY HEADACHE OR DIZZINESS. DENIES N/V/D. NO SOB/DIFFICULTY BREATHING NOTED. PT TOOK MOTRIN WITH LITTLE RELIEF. PLACED ON MONITOR. PT AT STABLE CONDITION. ERMD AWARE. WILL CONTINUE TO MONITOR.
[2019-10-14] MEDS ORDERED: DICYCLOMINE HCL LIQUID 20 MG, ALUMINUM HYD/MAG/SIMETHICONE 30 ML, LIDOCAINE VISCOUS 2% ... PO ONE ×3 (22:15)
[2019-10-14] MEDS ORDERED: ACETAMINOPHEN EXTRA STRENGTH 500 MG TAB PO ONE (22:50)
[2019-10-14 23:00] VITALS: BP 133/85
--- NOTE | 2019-10-14 23:00 | NUR ---
PT DISCHARGED WITH PAPERWORK. RX PRILOSEC, TYLENOL. EDUCATED PT REGARDING MEDICATIONS AND S/E. EDUCATED PT REGARDING D/C DIAGNOSIS AND INSTRUCTIONS. PT VERBALIZED UNDERSTANDING OF TEACHING. TOLD PT TO FOLLOW UP WITH PCP AND WHEN TO RETURN TO ED. PT AT STABLE CONDITION. ALL QUESTIONS ANSWERED.
== END 2019-10-14 23:00 | disposition home or self-care (01) ==
LOC: MED 21:23
DX: K29.70 Gastritis, unspecified, without bleeding (principal); E03.9 Hypothyroidism, unspecified; Z79.899 Other long term (current) drug therapy; Z88.5 Allergy status to narcotic agent
CPT/HCPCS: 93005; 99283

== ENCOUNTER 2020-01-09 13:19 | Emergency (ER) | payer OTHER ==
[~2020-01-09] VITALS: Ht 167.6 cm; Wt 119.7 kg
[2020-01-09 13:25] VITALS: BP 118/74
--- NOTE | 2020-01-09 13:29 | NUR ---
PT AMBULATED TO LOBBY
--- NOTE | 2020-01-09 14:18 | NUR ---
34 /F BIB FAMILY C/O COUGH WITH MID CHEST PAIN 8/10,PRESSURE X 5 DAYS. PT IN NO DISTRESS. 99% RA. HX THYROID DISEASE, ARTHRITIS. PATIENT STATES PAIN OF 8/10 AT THIS TIME. PATIENT POSITIONED FOR COMFORT; HOB ELEVATED; BEDRAILS UP X1; BED DOWN. ER MD MADE AWARE OF PT STATUS.
--- NOTE | 2020-01-09 15:29 | NUR ---
Patient discharged with v/s stable. Written and verbal after care instructions given and explained. Patient alert, oriented and verbalized understanding of instructions. Ambulatory with steady gait. All questions addressed prior to discharge. ID band removed. Patient advised to follow up with PMD. Rx of MOTRIN & PREDNISONE given. Patient educated on indication of medication including possible reaction and side effects. Opportunity to ask questions provided and answered.
[2020-01-09 15:31] VITALS: BP 118/74
== END 2020-01-09 15:29 | disposition home or self-care (01) ==
LOC: MED 13:19
DX: R07.89 Other chest pain (principal); R05 Cough; E03.9 Hypothyroidism, unspecified; Z98.890 Other specified postprocedural states; Z79.899 Other long term (current) drug therapy; Z88.5 Allergy status to narcotic agent
CPT/HCPCS: 71045; 99283

== ENCOUNTER 2020-04-08 10:34 | Emergency (ER) | payer OTHER, SELFPAY ==
[~2020-04-08] VITALS: Ht 167.6 cm; Wt 113.4 kg
[2020-04-08 10:43] VITALS: BP 120/75
--- NOTE | 2020-04-08 11:03 | NUR ---
C/O HEADACHE XLAST NIGHT, COUGH X TODAY.MED HX: HYPOTHYROID. PATIENT STATES PAIN OF 5/10 AT THIS TIME.
--- NOTE | 2020-04-08 11:20 | NUR ---
COVID SWAB DONE.
[2020-04-08] MEDS ORDERED: ACETAMINOPHEN EXTRA STRENGTH 500 MG TAB ONE (11:23)
[2020-04-08] MEDS ORDERED: ACETAMINOPHEN EXTRA STRENGTH 500 MG TAB PO ONE (11:25)
[2020-04-08 11:40] VITALS: BP 120/75
--- NOTE | 2020-04-08 11:40 | NUR ---
Patient discharged with v/s stable. Written and verbal after care instructions given and explained. Patient alert, oriented and verbalized understanding of instructions. Ambulatory with steady gait. All questions addressed prior to discharge. Patient advised to self isolate for the next two weeks. Pt advised she would be called with her COVID results. ID band removed. Patient advised to follow up with PMD. Rx of Ibuprofen 600mg given. Patient educated on indication of medication including possible reaction and side effects. Opportunity to ask questions provided and answered.
--- NOTE | 2020-04-09 22:22 | NUR ---
RECEIVED A POSITIVE COVID SWAB FROM JACKI ENGLE. REPORT GIVEN TO INFECTION CONTROL.
== END 2020-04-08 11:40 | disposition home or self-care (01) ==
LOC: MED 10:34
DX: M79.10 Myalgia, unspecified site (principal); Z20.828 Contact with and (suspected) exposure to other viral communicable diseases; E07.9 Disorder of thyroid, unspecified; Z79.899 Other long term (current) drug therapy; Z88.5 Allergy status to narcotic agent
CPT/HCPCS: 99283; C9803; U0003; 36415

== ENCOUNTER 2020-04-14 11:43 | Emergency (ER) | payer OTHER, SELFPAY ==
[~2020-04-14] VITALS: Ht 167.6 cm; Wt 113.4 kg
[2020-04-14 11:44] VITALS: BP 116/68
--- NOTE | 2020-04-14 11:44 | NUR ---
AMBULATED TO BED 1
--- NOTE | 2020-04-14 11:44 | NUR ---
Patient placed in bed 1 with COVID precautions in place.
--- NOTE | 2020-04-14 11:50 | NUR ---
Patient being evaluated by Dr. Bazan at bedside.
--- NOTE | 2020-04-14 11:55 | NUR ---
Pt placed in gown and waiting for x-ray.
--- NOTE | 2020-04-14 12:00 | NUR ---
X-Ray at bedside.
--- NOTE | 2020-04-14 12:05 | NUR ---
C/O NON RADIATING R SIDED CHEST PAIN 6/10 WHEN COUGHING. C/O DRY COUGH X3 DAYS. PT HAS TESTED + FOR COVID19. LUNG SOUNDS CAEBL. O2 SAT 97% RA. NO LABORED BREATHING OR ACCESORY MUSCLE USE NOTED. PT HAS BEEN AROUND OTHER + covid 19 CONTACTS. BED IN LOW POSITION, PT SITING UP AT BEDSIDE.
[2020-04-14 12:40] VITALS: BP 116/68
--- NOTE | 2020-04-14 12:48 | NUR ---
Patient discharged with v/s stable. Written and verbal after care instructions given and explained. Patient alert, oriented and verbalized understanding of instructions. Ambulatory with steady gait. All questions addressed prior to discharge. ID band removed. Patient advised to follow up with PMD. Rx of LOMOTIL AND ZOFRAN given. Patient educated on indication of medication including possible reaction and side effects. Opportunity to ask questions provided and answered.
== END 2020-04-14 12:48 | disposition home or self-care (01) ==
LOC: MED 11:43 → EEVIPCON 11:43 → MED 12:48
DX: U07.1 COVID-19 (principal); E07.9 Disorder of thyroid, unspecified; Z90.49 Acquired absence of other specified parts of digestive tract; Z98.890 Other specified postprocedural states; Z88.6 Allergy status to analgesic agent
CPT/HCPCS: 71045; 99283; Q0092; 99284

== ENCOUNTER 2020-04-26 17:53 | Emergency (ER) | payer OTHER, SELFPAY ==
[~2020-04-26] VITALS: Ht 160 cm; Wt 112.9 kg
[2020-04-26 18:24] VITALS: BP 105/77
--- NOTE | 2020-04-26 18:35 | NUR ---
tested p;ositive + 04/08/20 requiring medical clrearace to return to work
--- NOTE | 2020-04-26 19:27 | NUR ---
Patient discharged with v/s stable. Written and verbal after care instructions given and explained. Patient alert, oriented and verbalized understanding of instructions. Ambulatory with steady gait. All questions addressed prior to discharge. ID band removed. Patient advised to follow up with PMD. Rx of IMODIUM given. Patient educated on indication of medication including possible reaction and side effects. Opportunity to ask questions provided and answered.
== END 2020-04-26 19:27 | disposition home or self-care (01) ==
LOC: MED 17:53 → EEVIPCON 17:53 → MED 19:27
DX: R11.0 Nausea (principal); Z20.828 Contact with and (suspected) exposure to other viral communicable diseases; R19.7 Diarrhea, unspecified; R63.0 Anorexia; E03.9 Hypothyroidism, unspecified; Z98.890 Other specified postprocedural states; Z79.899 Other long term (current) drug therapy; Z88.5 Allergy status to narcotic agent
CPT/HCPCS: 99283; U0003

== ENCOUNTER 2020-08-31 11:21 | Emergency (ER) | payer OTHER ==
[~2020-08-31] VITALS: Ht 167.6 cm; Wt 105.7 kg
[2020-08-31 11:40] VITALS: BP 153/71
[2020-08-31] MEDS: ALUMINUM HYD/MAG/SIMETHICONE 30 ML, DICYCLOMINE HCL LIQUID 20 MG, LIDOCAINE VISCOUS 2% ... PO ONE ×3 (12:01)
[2020-08-31] MEDS ORDERED: ALUMINUM HYD/MAG/SIMETHICONE 30 ML UDC ONE ×2 (12:03→12:04)
[2020-08-31] MEDS ORDERED: DICYCLOMINE HCL LIQUID 10 MG/5 ML UDC ONE (12:03)
[2020-08-31] MEDS ORDERED: LIDOCAINE VISCOUS 2% 20 ML UDC ONE ×2 (12:03→12:04)
== END 2020-08-31 12:17 | disposition home or self-care (01) ==
LOC: MED 11:21
DX: R13.10 Dysphagia, unspecified (principal); E03.9 Hypothyroidism, unspecified; Z79.899 Other long term (current) drug therapy; Z88.6 Allergy status to analgesic agent
CPT/HCPCS: 99282

== ENCOUNTER 2021-01-29 23:18 | Emergency (ER) | payer OTHER ==
[~2021-01-29] VITALS: Ht 167.6 cm; Wt 108.0 kg
[2021-01-29 23:21] VITALS: BP 136/85
--- NOTE | 2021-01-29 23:29 | NUR ---
Pt ambulated to ER bed 12 w/ steady gait.
--- NOTE | 2021-01-29 23:45 | NUR ---
35 Y/O CAME TO THE ED WITH DAUGHTER FOR UPPER ABDOMINAL PAIN, AND VOMITTING. PT STATES THAT SHE HAS BLOOD IN VOMIT X1 DAY. A&OX4. GCS 15. PMH: THYROID DISESE, RHEUMATOID ARTHRITIS ALLERGIES: MORPHINE
--- NOTE | 2021-01-29 23:51 | NUR ---
DR ESPINOSA AT BEDSIDE EXAMINING PT
[2021-01-29] MEDS ORDERED: NACL 0.9% 500 ML IV ONE (23:55)
[2021-01-29] MEDS ORDERED: KETOROLAC 30 MG/ML VIAL IVP ONE (23:55)
[2021-01-29] MEDS ORDERED: PANTOPRAZOLE 40 MG INJ VIAL IVP ONE (23:55)
--- NOTE | 2021-01-30 00:20 | NUR ---
XRAY AT BEDSIDE
--- NOTE | 2021-01-30 00:51 | NUR ---
PT REFUSED MEDICATIONS; EDUCATED PT REGARDING SIDE EFFECTS AND PURPOSE OF MEDICATIONS BUT PT STILL REFUSED; ERMD MADE AWARE
[2021-01-30] MEDS ORDERED: OMEP20TC12 PO (01:23)
[2021-01-30 01:35] VITALS: BP 136/85
--- NOTE | 2021-01-30 01:35 | NUR ---
Patient discharged with v/s stable. Written and verbal after care instructions given and explained. Patient alert, oriented and verbalized understanding of instructions. Ambulatory with steady gait. All questions addressed prior to discharge. ID band removed. Patient advised to follow up with PMD. Rx of Omeprazole given. Patient educated on indication of medication including possible reaction and side effects. Opportunity to ask questions provided and answered.
== END 2021-01-30 01:35 | disposition home or self-care (01) ==
LOC: MED 23:18
DX: K21.9 Gastro-esophageal reflux disease without esophagitis (principal); R05 Cough; E07.9 Disorder of thyroid, unspecified; Z88.5 Allergy status to narcotic agent
CPT/HCPCS: 71045; 96374; 96375; 99284; C9113; J1885; 99283

== ENCOUNTER 2021-09-12 16:35 | Emergency (ER) | payer OTHER, MEDICAID ==
[~2021-09-12] VITALS: Ht 167.6 cm; Wt 108.9 kg
[~2021-09-12 16:35] MED LIST changes: +OMEP-278 PO
[2021-09-12 17:21] VITALS: BP 136/75
--- NOTE | 2021-09-12 17:30 | NUR ---
PT AMB TO BED 2
[2021-09-12] MEDS ORDERED: DICYCLOMINE HCL LIQUID 10 MG/5 ML UDC ONE (17:50)
[2021-09-12] MEDS ORDERED: ALUMINUM HYD/MAG/SIMETHICONE 30 ML UDC ONE (17:50)
[2021-09-12] MEDS ORDERED: DICYCLOMINE HCL LIQUID 20 MG, ALUMINUM HYD/MAG/SIMETHICONE 30 ML, LIDOCAINE VISCOUS 2% ... PO ONE ×3 (17:50)
--- NOTE | 2021-09-12 17:50 | NUR ---
36 y/o female from home c/o throat discomfort x 2 days, pt states she has had this issue in past and saw specialist. C/O difficulty swallowing, but does not appear in distress. Denies cough/SOB. RR even and unlabored. VSS medhx: hypothyroid, rheumatoid arthritis
--- NOTE | 2021-09-12 17:51 | NUR ---
JHONATHAN Stubbs at bedside evaluating patient
[2021-09-12] MEDS ORDERED: OMEP40EC24 PO (18:45)
[2021-09-12 18:54] VITALS: BP 131/77
--- NOTE | 2021-09-12 18:55 | NUR ---
Patient discharged with v/s stable. Written and verbal after care instructions given and explained. Patient alert, oriented and verbalized understanding of instructions. Ambulatory with steady gait. All questions addressed prior to discharge. ID band removed. Patient advised to follow up with PMD. Rx of Prilosec given. Patient educated on indication of medication including possible reaction and side effects. Opportunity to ask questions provided and answered.
== END 2021-09-12 18:55 | disposition home or self-care (01) ==
LOC: MED 16:35
DX: K20.90 Esophagitis, unspecified without bleeding (principal); K29.70 Gastritis, unspecified, without bleeding; E03.9 Hypothyroidism, unspecified; Z79.899 Other long term (current) drug therapy; Z79.2 Long term (current) use of antibiotics; Z88.5 Allergy status to narcotic agent
CPT/HCPCS: 99283

== ENCOUNTER 2022-05-23 12:31 | Emergency (ER) | payer OTHER ==
[~2022-05-23] VITALS: Ht 165.1 cm; Wt 99.8 kg
[~2022-05-23 12:31] MED LIST changes: +OMEP40EC24 PO
[2022-05-23 12:58] VITALS: BP 119/76
--- NOTE | 2022-05-23 13:06 | NUR ---
Savannah yovana swab collected, handed to CPT Kate at ER bedside
[2022-05-23 14:35] LABS: BASOPHILS % (AUTO) 0.3 % (0.0-2.0); EOSINOPHILS % (AUTO) 0.1 % (0.0-4.0); HEMATOCRIT 44.1 % (36-48); HEMOGLOBIN 14.3 g/dL (12.0-16.0); LYMPHOCYTES # (AUTO) 1.3 K/uL (2.5-16.5); LYMPHOCYTES % (AUTO) 11.4 % (20.5-51.1); MEAN CORPUSCULAR HEMOGLOBIN 27 pg (27-31); MEAN CORPUSCULAR HGB CONC 33 g/dL (33-37); MEAN CORPUSCULAR VOLUME 82.8 fL (80-94); MONOCYTES # (AUTO) 0.6 K/uL (0.8-1.0); MONOCYTES % (AUTO) 5.2 % (1.7-9.3); NEUTROPHILS # (AUTO) 9.5 K/uL (1.8-7.7); PLATELET COUNT (AUTO) 275 K/uL (140-450); RED BLOOD CELL COUNT(AUTO) 5.32 MIL/uL (4.20-5.40); RED CELL DISTRIBUTION WIDTH 14.4 % (11.6-13.7); WHITE BLOOD COUNT (AUTO) 11.4 K/uL (4.8-10.8)
[2022-05-23 15:07] LABS: ANION GAP 10.1 (8-16); ASPARTATE AMINOTRANSFERASE 14 U/L (15-37); CHLORIDE 104 mmol/L (98-107); CREATININE 0.5 mg/dL (0.6-1.3); GFR ARICAN-AMERICAN 178 mL/min (>90); GLUCOSE 98 mg/dL (74-106); POTASSIUM 4.1 mmol/L (3.5-5.1); SODIUM SERUM 139 mmol/L (136-145); TOTAL BILIRUBIN 0.9 mg/dL (0.0-1.0); UREA NITROGEN, BLOOD 7 mg/dL (7-18)
[2022-05-23] MEDS ORDERED: FAMOTIDINE 20 MG TAB PO ONE (15:50)
[2022-05-23] MEDS ORDERED: FAMO-90 PO (16:01)
[2022-05-23 16:08] VITALS: BP 123/78
== END 2022-05-23 16:20 | disposition home or self-care (01) ==
LOC: MED 12:31
DX: K22.0 Achalasia of cardia (principal); E03.9 Hypothyroidism, unspecified; K21.9 Gastro-esophageal reflux disease without esophagitis; Z88.5 Allergy status to narcotic agent; Z98.890 Other specified postprocedural states
CPT/HCPCS: 36415; 70360; 80053; 84484; 85025; 93005; 99285

== ENCOUNTER 2022-12-16 21:41 | Emergency (ER) | payer OTHER ==
[~2022-12-16] VITALS: Ht 170.2 cm; Wt 97.5 kg
[~2022-12-16 21:41] MED LIST changes: +FAMO-90 PO
[2022-12-16 21:46] VITALS: BP 114/76
--- NOTE | 2022-12-16 21:49 | NUR ---
TO LOBBY A/W BED AMBULATORY
--- NOTE | 2022-12-16 23:01 | NUR ---
Alf michaels in [facility] - 12/16/22 at 2303 by [facility] TO BED AMBULATORY
--- NOTE | 2022-12-16 23:09 | NUR ---
CALLED PATIENT , PATIENT STATED SHE LEFT
--- NOTE | 2022-12-16 23:10 | NUR ---
PATIENT LEFT WITHOUT BEING SEEN BY DR. SHEARER. NO FURTHER CARE PROVIDED FOR PATIENT.
[2022-12-17] MEDS ORDERED: CEPH-588 PO (00:40)
[2022-12-17] MEDS ORDERED: FLONAS NS (00:40)
== END 2022-12-16 23:02 | disposition left against medical advice (07) ==
LOC: MED 21:41
DX: R35.0 Frequency of micturition (principal); Z53.21 Procedure and treatment not carried out due to patient leaving prior to being seen by health care provider

== ENCOUNTER 2022-12-16 23:27 | Emergency (ER) | payer OTHER ==
[~2022-12-16] VITALS: Ht 170.2 cm; Wt 97.1 kg
[2022-12-17] VITALS: BP 114/67
--- NOTE | 2022-12-17 | NUR ---
TO BED AMBULATORY
--- NOTE | 2022-12-17 00:13 | NUR ---
Patient resting in bed, A/Ox4, chest rise and fall symmetrical, no s/s of distress, patient on monitor.
[2022-12-17 00:18] LABS: APPEARANCE,URINE HAZY (CLEAR); BILIRUBIN,URINE NEGATIVE (NEGATIVE); BLOOD, URINE LARGE (NEGATIVE); COLOR,URINE YELLOW (YELLOW); LEUKOCYTE ESTERASE ,URINE TRACE (NEGATIVE); NITRITE, URINE NEGATIVE (NEGATIVE); UGLUCOSE NEGATIVE (NEGATIVE)
[2022-12-17 00:33] LABS: RBC,URINE 11-20 (MOD) /HPF (0-5); WBC,URINE TOO MANY TO COUNT /HPF (0-5)
[2022-12-17] MEDS ORDERED: FLONAS NS (00:40)
[2022-12-17] MEDS ORDERED: CEPH-588 PO (00:40)
[2022-12-17 00:44] VITALS: BP 112/71
== END 2022-12-17 00:44 | disposition home or self-care (01) ==
LOC: MED 23:27
DX: N30.01 Acute cystitis with hematuria (principal); K21.9 Gastro-esophageal reflux disease without esophagitis; E03.9 Hypothyroidism, unspecified; Z79.899 Other long term (current) drug therapy; Z88.5 Allergy status to narcotic agent
CPT/HCPCS: 81001; 81025; 87086; 99283

== ENCOUNTER 2022-12-22 13:55 | Emergency (ER) | payer OTHER ==
[~2022-12-22] VITALS: Ht 170.2 cm; Wt 98.0 kg
[~2022-12-22 13:55] MED LIST changes: +CEPH-588 PO; +FLONAS NS
[2022-12-22 14:05] VITALS: BP 135/73
--- NOTE | 2022-12-22 14:10 | NUR ---
37/F WALKED IN C/O EPIGASTRIC PAIN AND MILD UPPER CHEST DISCOMFORT ONSET TODAY ACCOMPANIED BY DIARRHEA. PT REPORTS 5/10 EPIGASTRIC PAIN. DENIES FEVER. PMH: DENIES
[2022-12-22 14:33] LABS: APPEARANCE,URINE CLEAR (CLEAR); BILIRUBIN,URINE NEGATIVE (NEGATIVE); BLOOD, URINE NEGATIVE (NEGATIVE); COLOR,URINE YELLOW (YELLOW); LEUKOCYTE ESTERASE ,URINE NEGATIVE (NEGATIVE); NITRITE, URINE NEGATIVE (NEGATIVE); UGLUCOSE NEGATIVE (NEGATIVE)
[2022-12-22] MEDS ORDERED: ALUMINUM HYD/MAG/SIMETHICONE 30 ML UDC PO ONE (14:50)
[2022-12-22] MEDS ORDERED: FAMOTIDINE 20 MG TAB PO ONE (14:50)
[2022-12-22] MEDS ORDERED: ONDANSETRON 4 MG ODT PO ONE (14:50)
[2022-12-22 16:00] LABS: BASOPHILS % (AUTO) 0.5 % (0.0-2.0); EOSINOPHILS # (AUTO) 0.2 K/uL (0-0.4); EOSINOPHILS % (AUTO) 1.5 % (0.0-4.0); HEMATOCRIT 39.5 % (36-48); LYMPHOCYTES # (AUTO) 2.3 K/uL (2.5-16.5); LYMPHOCYTES % (AUTO) 20.9 % (20.5-51.1); MEAN CORPUSCULAR HEMOGLOBIN 28 pg (27-31); MEAN CORPUSCULAR HGB CONC 33 g/dL (33-37); MEAN CORPUSCULAR VOLUME 84.1 fL (80-94); MONOCYTES # (AUTO) 0.6 K/uL (0.8-1.0); MONOCYTES % (AUTO) 5.7 % (1.7-9.3); NEUTROPHILS # (AUTO) 7.7 K/uL (1.8-7.7); NEUTROPHILS % (AUTO) 71.4 % (42.2-75.2); PLATELET COUNT (AUTO) 291 K/uL (140-450); RED CELL DISTRIBUTION WIDTH 13.8 % (11.6-13.7); WHITE BLOOD COUNT (AUTO) 10.8 K/uL (4.8-10.8)
[2022-12-22] MEDS ORDERED: SUCR1TAB35 PO (16:18)
[2022-12-22] MEDS ORDERED: OMEP40EC23 PO (16:18)
--- NOTE | 2022-12-22 16:21 | NUR ---
Patient does not wish to proceed with medical care recommended by DR SHEARER. Patient given information related to possible complications, up to and including , which could occur as a result of leaving hospital at this time. Patient verbalizes understanding of risks involved leaving against medical advice. Patient has signed AMA form.
[2022-12-22 17:19] LABS: LIPASE 73 U/L (73-393)
[2022-12-22 17:22] LABS: ALBUMIN 4.2 g/dL (3.4-5.0); ANION GAP 12.8 (8-16); CARBON DIOXIDE 26.3 mmol/L (21-32); CREATININE 0.7 mg/dL (0.6-1.3); POTASSIUM 4.1 mmol/L (3.5-5.1); TOTAL BILIRUBIN 0.4 mg/dL (0.0-1.0)
== END 2022-12-22 16:21 | disposition left against medical advice (07) ==
LOC: MED 13:55
DX: R10.13 Epigastric pain (principal); R19.7 Diarrhea, unspecified; K21.9 Gastro-esophageal reflux disease without esophagitis; E03.9 Hypothyroidism, unspecified; Z79.899 Other long term (current) drug therapy; Z79.2 Long term (current) use of antibiotics; Z88.5 Allergy status to narcotic agent
CPT/HCPCS: 36415; 71045; 80053; 81003; 81025; 83690; 83880; 84484; 85025; 93005; 99285; Q0162

== ENCOUNTER 2023-06-09 11:45 | Emergency (ER) | payer OTHER ==
[~2023-06-09] VITALS: Ht 165.1 cm; Wt 103.5 kg
[~2023-06-09 11:45] MED LIST changes: +OMEP40EC23 PO; +SUCR1TAB35 PO
[2023-06-09 11:47] VITALS: BP 119/72; PULSE 79; RESP 20; TEMP 97.5; O2SAT 100
[2023-06-09] MEDS ORDERED: CEPH-588 PO (12:54)
[2023-06-09 13:32] VITALS: BP 110/62; PULSE 76; RESP 18; TEMP 97; O2SAT 98
== END 2023-06-09 13:32 | disposition home or self-care (01) ==
LOC: MED 11:45
DX: N39.0 Urinary tract infection, site not specified (principal); K21.9 Gastro-esophageal reflux disease without esophagitis; E03.9 Hypothyroidism, unspecified; Z88.5 Allergy status to narcotic agent; Z79.899 Other long term (current) drug therapy
CPT/HCPCS: 81002; 81025; 99282

== ENCOUNTER 2023-08-09 08:01 | Emergency (ER) | payer OTHER ==
[~2023-08-09] VITALS: Ht 165.1 cm; Wt 104.3 kg
[2023-08-09 08:07] VITALS: BP 112/63; PULSE 75; RESP 16; TEMP 97.9; O2SAT 100
[2023-08-09] MEDS ORDERED: CEPH-588 PO (08:23)
[2023-08-09 08:44] VITALS: BP 107/74; PULSE 69; RESP 18; TEMP 98.3; O2SAT 98
== END 2023-08-09 08:44 | disposition home or self-care (01) ==
LOC: MED 08:01
DX: N30.01 Acute cystitis with hematuria (principal); K21.9 Gastro-esophageal reflux disease without esophagitis; E07.9 Disorder of thyroid, unspecified; Z79.899 Other long term (current) drug therapy; Z88.5 Allergy status to narcotic agent
CPT/HCPCS: 81002; 81025; 99283

== ENCOUNTER 2023-08-26 21:21 | Emergency (ER) | payer OTHER ==
[~2023-08-26] VITALS: Ht 170.2 cm; Wt 104.3 kg
[2023-08-26 21:35] VITALS: BP 122/68; PULSE 89; RESP 18; TEMP 97.9; O2SAT 100
[2023-08-26 23:03] VITALS: BP 122/68; PULSE 89; RESP 18; TEMP 97.9; O2SAT 100
== END 2023-08-26 22:55 | disposition home or self-care (01) ==
LOC: MED 21:21
DX: T18.2XXA Foreign body in stomach, initial encounter (principal); K21.9 Gastro-esophageal reflux disease without esophagitis; E03.9 Hypothyroidism, unspecified; Z88.5 Allergy status to narcotic agent; Z79.899 Other long term (current) drug therapy; Z90.49 Acquired absence of other specified parts of digestive tract; W44.C0XA Glass unspecified, entering into or through a natural orifice, initial encounter; Y93.89 Activity, other specified; Y92.89 Other specified places as the place of occurrence of the external cause; Y99.8 Other external cause status
CPT/HCPCS: 74018; 99283

== ENCOUNTER 2024-02-13 09:09 | Emergency (ER) | payer OTHER ==
[~2024-02-13] VITALS: Ht 170.2 cm; Wt 120.2 kg
[2024-02-13 09:15] VITALS: BP 114/73; PULSE 76; RESP 18; O2SAT 100
[2024-02-13] MEDS ORDERED: LOTC TP (10:00)
[2024-02-13] MEDS ORDERED: PYR100 PO (10:00)
[2024-02-13] MEDS ORDERED: CEPH-588 PO (10:00)
[2024-02-13 10:25] VITALS: BP 114/73; PULSE 76; RESP 18; TEMP 98.3; O2SAT 100
== END 2024-02-13 10:25 | disposition home or self-care (01) ==
LOC: MED 09:09
DX: N30.00 Acute cystitis without hematuria (principal); B35.4 Tinea corporis; E03.9 Hypothyroidism, unspecified; Z79.899 Other long term (current) drug therapy
CPT/HCPCS: 81002; 81025; 99283

== ENCOUNTER 2024-02-18 19:06 | Emergency (ER) | payer OTHER ==
[~2024-02-18] VITALS: Ht 165.1 cm; Wt 122.5 kg
[~2024-02-18 19:06] MED LIST changes: +LOTC TP; +PYR100 PO
[2024-02-18 19:13] VITALS: BP 107/68; PULSE 74; RESP 18; TEMP 96.9; O2SAT 100
[2024-02-18] MEDS ORDERED: BACTO TP (20:47)
[2024-02-18] MEDS ORDERED: ATA25 PO (20:47)
[2024-02-18] MEDS: DEXAMETHASONE 10 MG/ML VIAL IM ONE (20:55)
== END 2024-02-18 21:00 | disposition home or self-care (01) ==
LOC: MED 19:06
DX: L30.9 Dermatitis, unspecified (principal); E03.9 Hypothyroidism, unspecified; Z88.5 Allergy status to narcotic agent; Z79.899 Other long term (current) drug therapy
CPT/HCPCS: 96372; 99283; J1100; Q0163